=== PATIENT | female | born 1985 | race Asian ===

== ENCOUNTER 2018-02-28 01:42 | Emergency (ER) | payer BC ==
[~2018-02-28] VITALS: Ht 154.9 cm; Wt 49.0 kg
[2018-02-28 01:46] VITALS: Ht 154.9 cm; Wt 49.0 kg
[2018-02-28 02:45] LABS: BASOPHIL % 0.6 % (0-2); PLATELET COUNT 306 x10^3mcL (130-400); RED CELL DISTRIBUTION WIDTH 12.2 % (11.5-14.5)
[2018-02-28 02:54] LABS: CARBON DIOXIDE 27.3 mmol/L (21-32); CHLORIDE SERUM 104 mmol/L (98-107); CREATININE SERUM 0.8 mg/dL (0.6-1.0); GFR1 > 60 mL/min; GLUCOSE SERUM 127 mg/dL (74-106); SODIUM SERUM 141 mmol/L (136-145)
[2018-02-28 02:59] LABS: ALBUMIN 3.8 g/dL (3.4-5.0); ALKALINE PHOSPHATASE 57 U/L (46-116); ALT/SGPT 27 U/L (14-59); AST/SGOT 19 U/L (15-37); BILIRUBIN TOTAL 0.31 mg/dL (0.20-1.00); LIPASE 125 IU/L (73-393); TOTAL PROTEIN, SERUM 7.9 g/dL (6.4-8.2)
[2018-02-28 04:56] VITALS: BP 95/56
== END 2018-02-28 04:56 | disposition home or self-care (01) ==
LOC: ED 01:42
PROVIDERS: Emergency Medicine
DX: R10.13 Epigastric pain (principal); R11.2 Nausea with vomiting, unspecified; Z90.89 Acquired absence of other organs
CPT/HCPCS: J2270; J2405; J3490; J7030; Q0092